=== PATIENT | male | born 1985 | race Caucasian/White ===

== ENCOUNTER 2017-10-13 23:27 | Emergency (ER) | payer SELFPAY ==
[~2017-10-13] VITALS: Ht 177.8 cm; Wt 104.0 kg
[2017-10-13 23:31] VITALS: BP 112/61
[2017-10-14] MEDS ORDERED: SODIUM CHLORIDE 0.9% 1,000 ML IV ONE (00:16)
[2017-10-14] MEDS ORDERED: KETOROLAC 30MG/ML VIAL IV STA (00:16)
[2017-10-14] MEDS ORDERED: ONDANSETRON HCL 4MG/2ML VIAL IV STA (00:16)
[2017-10-14] MEDS ORDERED: ASPIRIN 81MG TABLET PO ONE (00:30)
== END 2017-10-14 00:35 | disposition left against medical advice (07) ==
LOC: ER 23:27
DX: R07.9 Chest pain, unspecified (principal); R00.2 Palpitations
CPT/HCPCS: 71010; 93005; 99284; Z7610; J7030

== ENCOUNTER 2017-12-14 15:55 | Emergency (ER) | payer SELFPAY ==
[~2017-12-14] VITALS: Ht 167.6 cm; Wt 120.0 kg
[2017-12-14 15:58] VITALS: BP 126/83
== END 2017-12-14 16:27 | disposition left against medical advice (07) ==
LOC: ER 16:03
DX: R07.9 Chest pain, unspecified (principal); Z53.21 Procedure and treatment not carried out due to patient leaving prior to being seen by health care provider